=== PATIENT | male | born 1990 | race Caucasian/White ===

== ENCOUNTER 2018-03-05 13:37 | Emergency (ER) | payer OTHER ==
[2018-03-05] MEDS ORDERED: TETRACAINE HCL 0.5% OPH SOLN 2 ML OD ONE (13:55)
--- NOTE | 2018-03-05 13:57 | ER Document Report ---
HPI - HPI Patient complains to provider of: right eye pain Onset: Yesterday Pain Level: 3 Context: 27 yo non contact wearer male with right eye pain after fishing all night in the rain. Had campfire. Associated Symptoms: None Exacerbated by: Movement - opening eye Relieved by: Denies - ROS ROS below otherwise negative: Yes Systems Reviewed and Negative: Yes All other systems reviewed and negative Past Medical History - General Information source: Patient - Social History Smoking Status: Unknown if Ever Smoked Frequency of alcohol use: None Drug Abuse: None Lives with: Family Family History: Reviewed & Not Pertinent - Medical History Medical History: Negative Surgical Hx: Negative Vertical Provider Document - CONSTITUTIONAL Agree With Documented VS: Yes Exam Limitations: No Limitations General Appearance: No Apparent Distress - INFECTION CONTROL TRAVEL OUTSIDE OF THE [place] IN LAST 30 DAYS: No - HEENT HEENT: Conjuctival Injection - mild, no limbic flare, no FB, shallow corneal abrasion over right pupil, Normocephalic - NECK Neck: Supple Course - Vital Signs Vital signs: Temp Pulse Resp BP Pulse Ox 98.0 F 115 H 20 152/82 H 97 03/05/18 13:44 03/05/18 13:44 03/05/18 13:44 03/05/18 13:44 03/05/18 13:44 Discharge - Discharge Clinical Impression: Right corneal abrasion Condition: Good Disposition: HOME, SELF-CARE Instructions: Corneal Abrasion ([facility]), Eyedrop Use ([facility]), Topical Erythromycin ( [facility]) Additional Instructions: do not patch eye eryth eye ointment four times per day ketorolac eye drops: 1 in right eye every 8 hours motrin and tylenol for pain to er if worseing symptoms should heal in 24 hours see eye doctor tomorrow for recheck Referrals: CINDI MACK MD [ACTIVE STAFF] - Follow up tomorrow
[2018-03-05] MEDS ORDERED: KETOROLAC TROMETHAMINE 0.45% 4 DROP/0.4 ML DROPERETTE OD ONE (14:29)
[2018-03-05] MEDS ORDERED: ERYTHROMYCIN 0.5% OPH OINT 1 GM UNIT DOSE OD ONE (14:30)
[2018-03-05 14:46] VITALS: BP 148/95
== END 2018-03-05 14:47 | disposition home or self-care (01) ==
LOC: ER 13:37
DX: S05.01XA Injury of conjunctiva and corneal abrasion without foreign body, right eye, initial encounter (principal); X58.XXXA Exposure to other specified factors, initial encounter
CPT/HCPCS: 99283